=== PATIENT | female | born 2000 | race Caucasian/White ===

== ENCOUNTER → 2020-02-05 14:06 | Outpatient (BNVA) | payer OTHER, SELFPAY | PROVIDERS: Family Provider Nurse Practitioner Family; PCP Nurse Practitioner Family; Visit Provider Nurse Practitioner Family | DX: Z20.828 Contact with and (suspected) exposure to other viral communicable diseases (principal) | CPT/HCPCS: 87635 ==

== ENCOUNTER → 2020-04-03 09:02 | Outpatient (BNVA) | payer SELFPAY | PROVIDERS: Family Provider Nurse Practitioner Family; PCP Nurse Practitioner Family; Visit Provider Obstetrics & Gynecology | DX: N91.2 Amenorrhea, unspecified (principal) | CPT/HCPCS: 76830; 82670; 83001; 83036; 84146; 84402; 84439; 84443; 84702 ==

== ENCOUNTER → 2020-04-07 09:10 | Outpatient (BNVA) | payer SELFPAY | PROVIDERS: Family Provider Nurse Practitioner Family; PCP Nurse Practitioner Family; Visit Provider Nurse Practitioner Women's Health | DX: Z01.419 Encounter for gynecological examination (general) (routine) without abnormal findings (principal); E28.2 Polycystic ovarian syndrome | CPT/HCPCS: 88175 ==

== ENCOUNTER 2021-09-25 11:05 | Outpatient (CLI) | payer BC, SELFPAY ==
[2021-09-25 12:16] LABS: HCG Quantitative 4.12 mIU/mL; Progesterone 3.33 ng/mL
== END 2021-09-25 11:06 | disposition home or self-care (01) ==
PROVIDERS: PCP Registered Nurse; Visit Provider Nurse Practitioner Family
DX: Z01.89 Encounter for other specified special examinations (principal)
CPT/HCPCS: 36415; 84144; 84702

== ENCOUNTER 2022-09-23 08:30 | Outpatient (CLI) | payer OTHER, SELFPAY ==
--- NOTE | 2022-09-23 08:38 | US_ITS ---
WS: [id number] Pelvic ultrasound, 09/23/2022 Clinical Data: INFERTILITY MANAGEMENT Comparison: Pelvic ultrasound, 04/03/2020 Findings: The uterus measures 5.97 cm x 3.42 cm x 2.27 cm. The endometrium is 0.25 cm. No intrauterine or abnormal intrauterine mass is seen. The cervical length is 2.58 cm cm. The left ovary measures 3.81 cm x 2.97 cm x 2.90 cm with multiple cysts. The 3 largest cysts were me asured. Cyst 1: 0.89 x 1.45 x 1.75 cm Cyst 2: 0.98 x 1.00 x 1.03 cm Cyst 3: 0.53 x 0.81 x 1.01 cm The right ovary measures 3.47 cm x 2.85 cm x 2.91 cm with multiple cysts. The 3 largest cysts were me asured. Cyst 1: 1.43 x 1.47 x 1.60 cm Cyst 2: 0.76 x 0.97 x 1.03 cm Cyst 3: 0.91 x 1.12 x 1.13 cm US/US transvaginal [id number] Impression: Multiple bilateral ovarian cysts.
== END 2022-09-23 08:31 | disposition home or self-care (01) ==
PROVIDERS: PCP Registered Nurse; Visit Provider Registered Nurse
DX: Z31.89 Encounter for other procreative management (principal); N83.202 Unspecified ovarian cyst, left side; N83.201 Unspecified ovarian cyst, right side
CPT/HCPCS: 76830

== ENCOUNTER 2023-06-17 12:10 | Outpatient (CLI) | payer OTHER, SELFPAY ==
[2023-06-17 14:03] LABS: Progesterone 34.02 ng/mL
== END 2023-06-17 12:11 | disposition home or self-care (01) ==
PROVIDERS: PCP Registered Nurse; Visit Provider Obstetrics & Gynecology
DX: Z34.91 Encounter for supervision of normal pregnancy, unspecified, first trimester (principal)
CPT/HCPCS: 36415; 84144; 84702